=== PATIENT | female | born 1955 | race Caucasian/White ===

== ENCOUNTER 2024-05-21 09:07 | Emergency (ER) | payer MEDICARE, OTHER, SELFPAY ==
[2024-05-21 09:17] VITALS: BP 153/83
--- NOTE | 2024-05-21 10:06 | ED.GENMED ---
History of Present Illness
General
Chief Complaint: Abdominal Symptoms
Source: patient and family
Exam Limitations: none
Time Seen by Provider: 05/21/24 09:47
Nursing documentation reviewed up to this point in time: agreed with
History of Present Illness
History of Present Illness:
68-year-old female presents to the emergency department complaining of abdominal pain, worse in the right upper quadrant for the past 2 days. It is worse after he eats. She also had some loose stool nonbloody. She has had this pain ongoing for
the past 2 years. She follows with gastroenterology.
Past History
Past History
ED Past Medical History: HTN, Hypercholesterolemia, Other (cdif colitis) and Other (Previous hysterectomy, mitral valve prolapse, hyperlipidemia, hypertension, colon polypectomy, hemorrhoids, recent pelvic organ prolapse colpopexy)
ED Past Surgical History: None
Social History
Tobacco: Non-smoker
Alcohol: None
Drug: None
Living: alone
Review of Systems
Review of Systems
Allergies reviewed?: Yes
All Other Systems: Not applicable
Constitutional: Reports no symptoms
EENT: Reports no symptoms
Respiratory: Reports no symptoms
Cardiac: Reports no symptoms
ABD/GI: Reports abdominal pain and diarrhea
: Reports no symptoms
Musculoskeletal: Reports no symptoms
Skin: Reports no symptoms
Neurological: Reports no symptoms
Endocrine: Reports no symptoms
Hematologic/Lymphatic: Reports no symptoms
Psychiatric: Reports no symptoms
Phy Exam
Physical Exam
Physical Exam:
Physical Exam
General: no apparent distress, not acutely ill
Neck: supple. no meningeal signs. normal posterior pharynx
Heart: s1/s2 regular rate and rhythm, no murmur. equal radial
pulses.
HEENT: Pupils equal round reactive to light, EOMI
Lungs: no acute respiratory distress. clear bilaterally
Abdomen: normal bowel sounds. not tender. no CVAT
Neuro: alert and oriented. no focal neurological deficits cranial nerves II through XII intact
Skin: no rash
Psychiatric: well kept. interactive and cooperative
Extremities: no edema. no calf tenderness. negative homans. good distal pulses
Course
Orders/Labs/Results
Orders:
Orders
05/21/24 09:56
Cardiac Monitoring- Treatment ONCE
IV Insert/Care/Rem.- Treatment PRN
Pulse Ox/cont/shift [RESP] Stat
Quantity: 1
05/21/24 09:57
Electrocardiogram (*1) Stat
Reason for Study: Abdominal Pain
EKG- Treatment ONCE
US Abdomen Complete/Upper Urgent
Comment:
Reason For Exam: RUQ pain for 2 days
05/21/24 11:13
Complete Blood Count/With Diff Urgent
Comprehensive Metabolic Panel Urgent
Direct Bilirubin Urgent
Comment: ADD ON
Lipase Urgent
Urinalysis Reflex To Culture Urgent
Date Specimen was Collected: 05/21/24
Time Specimen was Collected: 10:06
Urine Microscopic Reflex Cult Urgent
Urine Culture Urgent
MAR Source: U
Specimen Description:
Date Specimen was Collected: 05/21/24
Time Specimen was Collected: 10:06
05/21/24 12:14
Add On- LAB Urgent
Tests Added?: direct bilirubin
Abnormal Lab Results
05/21/24
11:13
Absolute Neuts (auto) 6.7 H 10^3/uL
(1.4-6.5)
Carbon Dioxide 32 H mmol/L
(22-30)
Glucose 107 H mg/dl
(70-99)
Total Bilirubin 2.4 H mg/dl
(0.2-1.3)
Ur Occult Blood Reflex Trace A
(Negative)
Urine Nitrite (Reflex) Positive A
(Negative)
Leukocyte Esterase Rfl 2+ A
(Negative)
Urine RBC 3-6 A /HPF
(0-2)
Urine WBC (Reflex) 16-20 A /HPF
(0-5)
Urine Bacteria (Reflex) Many A
(Negative)
05/21/24 11:13
05/21/24 11:13
Vital Signs
Initial and Last Documented VS:
Initial Vital Signs
Temp Pulse Resp BP Pulse Ox
98.0 F 70 16 153/83 98
05/21/24 09:17 05/21/24 09:17 05/21/24 09:17 05/21/24 09:17 05/21/24 09:17
Last Documented Vital Signs
Temp Pulse Resp BP Pulse Ox
98.0 F 70 16 153/83 98
05/21/24 09:17 05/21/24 09:17 05/21/24 09:17 05/21/24 09:17 05/21/24 09:17
MDM/Problems Addressed
Differential Diagnosis Includes:
Biliary colic, UTI
MDM/Problems Addressed:
68-year-old female with UTI, likely biliary colic. No signs of cholecystitis. Stable for discharge. Discussed with Dr. Grace, who recommends follow-up with general surgery, and will arrange follow-up in office.
Chronic conditions affecting care: HTN
*Radiology
Radiology exam reviewed: radiology read reviewed (Ultrasound shows gallstones, no signs of cholecystitis)
*Pulse Oximetry
Patient hypoxic: no
*Critical Care Note
Total Time (30-74mins, 75-104mins- exclusive of procedures): Not Applicable
Patient Management
Social determinants of health affecting care: Living situation
Discussion with other providers: Tuyere Fitter (Gastroenterology, Dr. Villafana)
Escalation/DeEscalation of care consider admission/obs:
Admit not indicated
ED Attending Note
-
Portions of this chart may have been created with voice recognition software.� Occasional wrong word or��sound alike� substitutions may have occurred due to the inherent limitations of voice recognition software.
Discharge Plan
Departure
Patient Disposition: Home (Routine Discharge)
Date of Disposition: 05/21/24
Time of Disposition: 13:16
Patient with high blood pressure during this ER visit?: Yes
Condition: Good
Discharge Problem:
UTI (urinary tract infection), Biliary colic
Instructions: Urinary Tract Infection, Adult ED, Gallstones ED, BLOOD PRESSURE
Prescriptions:
New
cephalexin 500 mg capsule
500 mg PO BID 5 Days Qty: 10 0RF
No Action
atorvastatin 40 MG tablet
40 mg PO DAILY
carvedilol [Coreg] 25 MG tablet
25 mg PO BID
amlodipine 2.5 MG tablet
2.5 mg PO DAILY
qrwpepjfmgql-mzue-ascxa acid [Centrum Women] 1 EACH tablet
1 ea PO DAILY
Ca-D3-mag ls-cwok-xoh-marie-bor [Calcium 600-D3 Plus (mag-zinc)] 1 EACH tablet
1 ea PO BID
trazodone 50 MG tablet
75 mg PO HS
L.acidoph, paracasei,B. lactis 1 EACH capsule
1 ea PO DAILY
Referrals:
Rodri Urbano MD [Family Provider] -
Neftali Murphy MD [Active] - Call in 1-3 days for appt
Jessica Villafana MD [Active] - Call in 1-3 days for appt
Discharge Date and Time
Print Language: YORUBA
[2024-05-21 11:25] LABS: % Basophils 0.6 % (0-2); % Eosinophils 0.1 % (0-6); % Immature Granulocytes 0.4 % (0-0.5); % Lymphocytes 22.7 % (20.5-51.1); % Neutrophils 71.2 % (42.2-75.2); Absolute Basophils 0.1 10^3/uL (0-0.2); Absolute Lymphocytes 2.2 10^3/uL (1.2-3.4); Absolute Monocytes 0.5 10^3/uL (0.1-0.6); Absolute Neutrophils 6.7 10^3/uL (1.4-6.5); Hematocrit 40.3 % (37.0-47.0); Hemoglobin 13.7 g/dL (12.0-16.0); Mean Corpuscular Hgb 30.2 pg (27.0-31.0); Mean Corpuscular Volume 88.8 fL (81.0-99.0); Mean Platelet Volume 9.3 fL (7.4-10.4); Nucleated Red Blood Cells % 0 %; Platelet Count 229 10^3/uL (130-400); Red Blood Cell Count 4.54 10^6/uL (4.20-5.40); Red Cell Dist. Width 12.7 % (11.5-14.5); White Blood Cell Count 9.5 10^3/uL (4.8-10.8)
[2024-05-21 11:46] LABS: ALT (SGPT) 30 U/L (0-35); AST (SGOT) 32 U/L (14-36); Albumin 4.5 g/dl (3.5-5.0); Alkaline Phosphatase 45 U/L (38-126); Blood Urea Nitrogen 13 mg/dl (7-17); Carbon Dioxide 32 mmol/L (22-30); Chloride 103 mmol/L (98-107); Glucose 107 mg/dl (70-99); Lipase 70 U/L (23-300); Sodium 138 mmol/L (135-145); Total Bilirubin 2.4 mg/dl (0.2-1.3); Total Protein 6.6 g/dl (6.3-8.2); eGFR > 60.00
[2024-05-21 12:00] VITALS: BP 134/62
[2024-05-21 12:00] LABS: Urine Albumin Negative (Neg - Trace); Urine Bilirubin Negative (Negative); Urine Character Clear (Clear); Urine Color Yellow; Urine Glucose Negative (Negative); Urine Ketone Negative (Negative); Urine Leukocyte 2+ (Negative); Urine Nitrite Positive (Negative); Urine Occult Blood Trace (Negative); Urine Urobilinogen Negative (Neg - 1+); Urine pH 6.5 (5.0-9.0)
[2024-05-21 12:15] LABS: Urine Bacteria Many (Negative); Urine White Cell 16-20 /HPF (0-5)
[2024-05-21 12:56] LABS: Direct Bilirubin 0.2 mg/dl (0.0-0.4)
[2024-05-21 13:57] VITALS: BP 139/58
[2024-05-21 14:00] VITALS: BP 139/58
== END 2024-05-21 14:00 | disposition home or self-care (01) ==
LOC: EMR 09:07
PROVIDERS: EMERGENCY PHYSICIAN Emergency Medicine; FAMILY PHYSICIAN Family Medicine
DX: N39.0 Urinary tract infection, site not specified (principal); K80.70 Calculus of gallbladder and bile duct without cholecystitis without obstruction; I10 Essential (primary) hypertension; E78.00 Pure hypercholesterolemia, unspecified; I34.1 Nonrheumatic mitral (valve) prolapse; Z87.19 Personal history of other diseases of the digestive system; Z90.710 Acquired absence of both cervix and uterus
CPT/HCPCS: 99284; 76700; 80053; 81003; 81015; 82248; 83690; 85025; 87077; 87086; 87186

== ENCOUNTER → 2024-07-10 06:24 | Day surgery (SDC) | payer MEDICARE, OTHER, SELFPAY | LOC: GI 06:24 | PROVIDERS: ATTENDING PHYSICIAN Internal Medicine Gastroenterology | DX: Z12.11 Encounter for screening for malignant neoplasm of colon (principal); D12.0 Benign neoplasm of cecum; K57.30 Diverticulosis of large intestine without perforation or abscess without bleeding; K64.0 First degree hemorrhoids; Z86.010 Personal history of colon polyps; Z87.19 Personal history of other diseases of the digestive system | CPT/HCPCS: 45385; 45380; 88305 ==

== ENCOUNTER → 2024-08-11 14:06 | Outpatient (REF) | payer MEDICARE, OTHER, SELFPAY ==
[2024-08-14 08:42] LABS: Calprotectin, Fecal 105 ug/g (<=49)
== END ==
LOC: REG 14:06
PROVIDERS: ATTENDING PHYSICIAN Internal Medicine Gastroenterology; FAMILY PHYSICIAN Family Medicine
DX: R19.7 Diarrhea, unspecified (principal)
CPT/HCPCS: 83993; 87045; 87046; 87324; 87328; 87329; 87427; 87449

== ENCOUNTER → 2024-10-21 10:08 | Outpatient (REF) | payer MEDICARE, OTHER, SELFPAY | LOC: PAVMRI 10:08 | PROVIDERS: FAMILY PHYSICIAN Family Medicine | DX: S83.232A Complex tear of medial meniscus, current injury, left knee, initial encounter (principal); M17.12 Unilateral primary osteoarthritis, left knee | CPT/HCPCS: 73721 ==

== ENCOUNTER → 2024-12-19 13:31 | Outpatient (REF) | payer MEDICARE, OTHER, SELFPAY | LOC: WDC 13:31 | PROVIDERS: ATTENDING PHYSICIAN Family Medicine | DX: Z12.31 Encounter for screening mammogram for malignant neoplasm of breast (principal) | CPT/HCPCS: 77063; 77067 ==

== ENCOUNTER → 2025-03-17 09:34 | Outpatient (REF) | payer MEDICARE, OTHER, SELFPAY | LOC: REG 09:34 | PROVIDERS: ATTENDING PHYSICIAN Internal Medicine Gastroenterology; FAMILY PHYSICIAN Family Medicine | DX: R19.7 Diarrhea, unspecified (principal) | CPT/HCPCS: 83993; 87045; 87046; 87177; 87209; 87324; 87328; 87329; 87427; 87449 ==